=== PATIENT | female | born 1995 | race Caucasian/White ===

== ENCOUNTER 2020-12-04 08:40 | Emergency (ER) | payer OTHER ==
[~2020-12-04] VITALS: Ht 157.5 cm; Wt 67.3 kg
[2020-12-04 08:49] VITALS: BP 121/77; TEMP 99.2
[2020-12-04] MEDS ORDERED: ENBREL50 MG/ML SQ (08:58)
[2020-12-04 09:42] LABS: BASO % 0.1 % (0.0-2.0); EOS % 0.4 % (0-4.0); GRAN # 6.2 (1.4-6.5); GRAN % 73.5 % (42.2-75.2); HEMOGLOBIN 12.8 g/dl (12.5-16.0); LYMPH # 1.4 (1.2-3.4); LYMPH % 16.9 % (20.0-51.0); MEAN CELL VOLUME 80 fl (80.0-100.0); MEAN CORPUSCULAR HEMOGLOBIN 28 pg (27.0-31.0); MEAN CORPUSCULAR HGB CONC 35 g/dl (33.0-37.0); MEAN PLATELET VOLUME 11.2 fl (7.4-10.4); MONO # 0.8 (0.1-0.6); MONO % 8.9 % (1.7-9.3); PLATELET COUNT 189 K/mm3 (130-400); RED BLOOD COUNT 4.64 M/mm3 (4.10-5.30); REDCELL DISTRIBUTION WIDTH-CV 13.2 % (11.5-14.5)
[2020-12-04 10:42] VITALS: PULSE 95
== END 2020-12-04 10:42 | disposition home or self-care (01) ==
LOC: COL.ER 08:40
PROVIDERS: Physician Assistant
DX: O03.4 Incomplete spontaneous abortion without complication (principal)

== ENCOUNTER 2021-10-07 16:05 | Inpatient (IN) | payer BC ==
[2021-10-07] VITALS (10 sets, daily range): BP systolic 121–146; BP diastolic 64–84; PULSE 82–108; TEMP 97.6–99.6
[~2021-10-07] VITALS: Ht 154.9 cm; Wt 79.5 kg
[~2021-10-07 16:05] MED LIST: ENBREL50 MG/ML SQ
[2021-10-07] MEDS ORDERED: PREDNISONE10 MG PO (16:22)
[2021-10-07] MEDS ORDERED: PRENATAL TABLET PO (16:23)
--- NOTE | 2021-10-07 16:32 | NUR ---
1620 PATIENT HERE FROM HOME WITH COMPLAINTS IF CONTRACTIONS SINCE 4 AM AND THAT ARE GETTING INTENSE. EFM ON FHT 125 BABY ACTIVE. CONTRACTIONS EVERY 3-5 MIN PALPATE MODERATE. SVE. 2/80/-2. INTACT AT THIS TIME. DR KELLEY CALLED AND UPDATED ON ALL ABOVE INFORMATION. ORDERS TO WATCH FOR FULL HOUR. IF NO CHANGES MAY DISMISS TO HOME
--- NOTE | 2021-10-07 17:54 | NUR ---
6346 PATIENT ADMITTED FOR LABOR. IV STARTED IN RIGHT WRIST LR RADHA. CONSENTS SIGNED. PATIENT IS NOT READY FOR EPIDURAL AT THIS TIME
[2021-10-07 17:58] LABS: BASO # 0.1 K/mm3 (0.0-0.2); BASO % 0.4 % (0.0-2.0); EOS # 0.1 K/mm3 (0.0-0.7); EOS % 0.5 % (0.0-4.0); GRAN # 10.5 K/mm3 (1.4-6.5); GRAN % 77.8 % (42.2-75.2); HEMATOCRIT 42.4 % (37.0-47.0); HEMOGLOBIN 14.3 g/dl (12.5-16.0); LYMPH # 2.3 K/mm3 (1.2-3.4); LYMPH % 16.9 % (20.0-51.0); MEAN CELL VOLUME 82 fl (80.0-100.0); MEAN CORPUSCULAR HEMOGLOBIN 28 pg (27-31); MEAN CORPUSCULAR HGB CONC 34 g/dl (33.0-37.0); MEAN PLATELET VOLUME 10.9 fl (7.4-10.4); MONO # 0.5 K/mm3 (0.1-0.6); PLATELET COUNT 292 K/mm3 (130-400); RED BLOOD COUNT 5.19 M/mm3 (4.10-5.30); REDCELL DISTRIBUTION WIDTH-CV 13.5 % (11.5-14.5)
--- NOTE | 2021-10-07 18:21 | NUR ---
1815 report given to karina VALDEZ to assume care at this time
[2021-10-08] VITALS (43 sets, daily range): BP systolic 106–146; BP diastolic 56–103; PULSE 64–120; TEMP 97.2–99.1
--- NOTE | 2021-10-08 11:40 | NUR ---
1048-PT PUSHING WITH CONTRACTIONS. RN AND MD AT BEDSIDE CONTINOUSLY MONITORING FHR. FHR IN THE 130S AT THIS TIME. CATEGORY 1 STRIP.
--- NOTE | 2021-10-08 18:30 | NUR ---
1313-PT PUSHING WITH CONTRACTIONS. FHR IN THE 160S. DR. SLATER AT BEDSIDE DISCUSSION POC WITH PATIENT. PT VERBALIZED UNDERSTANDING. MD RECOMMENDING C/S AT THIS TIME. PT AGREES. PITOCIN TURNED OFF. EXPLAINING BENEFITS AND RISKS OF PROCEDURE. PT VERBALIZED UNDERSTANDING. CARE PLAN UPDATED.
--- NOTE | 2021-10-08 18:33 | NUR ---
183-BEDSIDE REPORT GIVEN TO Ahsan COLLINS RN. PT STABLE. CARE TO CONTINUE.
[2021-10-09] VITALS (7 sets, daily range): BP systolic 99–127; BP diastolic 62–85; PULSE 61–89; TEMP 97.5–98
[2021-10-09] MEDS ORDERED: ROXICODONE 55 MG/TAB PO (08:41)
[2021-10-09] MEDS ORDERED: IBU600 MG PO (08:41)
--- NOTE | 2021-10-09 09:19 | NUR ---
Initial visit; Patient and her thanked Cryptographic Machine Operator for offering congratulations and blessings for the of their daughter. Cryptographic Machine Operator thanked family for choosing [facility].
[2021-10-10 07:19] VITALS: BP 102/67; PULSE 71; TEMP 97.9
[2021-10-10 15:30] VITALS: BP 110/64; PULSE 80; TEMP 97.9
[2021-10-10 21:00] VITALS: BP 121/89; PULSE 83; TEMP 98.1
[2021-10-11 07:30] VITALS: BP 119/77; PULSE 83; TEMP 97.6
[2021-10-11 16:55] VITALS: BP 117/81; PULSE 86; TEMP 97.8
[2021-10-11 20:30] VITALS: BP 126/83; PULSE 84; TEMP 97.8
[2021-10-12 07:00] VITALS: BP 112/79; PULSE 79; TEMP 97.6
--- NOTE | 2021-10-12 07:11 | NUR ---
PATIENT AND PARTNER WENT OFF UNIT FOR A WALK DOWNSTAIRS. WILL CONTINUE TO MONITOR ONCE BACK ON UNIT.
== END 2021-10-12 11:52 | disposition home or self-care (01) | DRG 788 ==
LOC: LDRO 16:05 → LDR 16:20 → LDRO 17:26 → LDR 17:27 → OB 17:27
PROVIDERS: ADMIT Obstetrics & Gynecology
PROC: 10D00Z1 Extraction of Products of Conception, Low, Open Approach (ICD-10-PCS; principal; 2021-10-08)
DX: O99.892 Other specified diseases and conditions complicating childbirth (principal); M06.9 Rheumatoid arthritis, unspecified; O77.0 Labor and delivery complicated by meconium in amniotic fluid; O32.4XX0 Maternal care for high head at term, not applicable or unspecified; O62.0 Primary inadequate contractions; O90.89 Other complications of the puerperium, not elsewhere classified; R11.0 Nausea; Z3A.39 39 weeks gestation of pregnancy; Z37.0 Single live birth; Z79.52 Long term (current) use of systemic steroids
CPT/HCPCS: J0690; J1100; J1885; J2210; J2250; J2400; J2405; J2590; J3010; J7120; J7512